=== PATIENT | male | born 1995 | race Two or more races ===

== ENCOUNTER 2023-12-20 02:10 | Emergency (ER) | payer SELFPAY ==
[2023-12-20 02:17] VITALS: TEMP 98.8; BMI 25.8
[2023-12-20 04:35] LABS: EPI CELLS 1 /uL (0-25.1); HYALINE CASTS 0 /uL (0-3.1); URINE APPEARANCE CLEAR; URINE BACTERIA 2 /uL (0-1359); URINE BILIRUBIN NEGATIVE (NEGATIVE); URINE COLOR YELLOW; URINE GLUCOSE (UA) NEGATIVE (NEGATIVE); URINE KETONE NEGATIVE (NEGATIVE); URINE LEUK ESTERASE NEGATIVE (NEGATIVE); URINE NITRITE NEGATIVE (NEGATIVE); URINE PROTEIN NEGATIVE (NEGATIVE); URINE RBC 61 /uL (0-23.9); URINE WBC 5 /uL (0-25.8)
[2023-12-20 05:10] VITALS: BP 107/77; PULSE 61; RESP 16
== END 2023-12-20 05:10 | disposition home or self-care (01) ==
LOC: JER 02:10
DX: R10.32 Left lower quadrant pain (principal); R31.1 Benign essential microscopic hematuria
CPT/HCPCS: 81003; 87086; 99283-25